=== PATIENT | female | born 1950 | race Caucasian/White ===

== ENCOUNTER → 2016-07-24 | Outpatient (CLI) | payer MEDICARE ==
[~2016-07-24] MED LIST: ACTOPLUS MET 501 TAB PO; ALEVE 220MG220 MG PO; AMBIEN 10MG10 MG PO; ARIMIDEX1 MG PO; ASPIRIN 81M81 MG/TA2 PO; BYETTA PO; BYSTOLIC10 MG PO; BYSTOLIC5 MG PO; CALCIUM 500 + D1 TAB PO; CALCIUM 600 + V1 TA1 PO; CELEXA 20MG20 MG/TAB PO; CELEXA40 MG PO; COLACE 100100 MG/CAP PO; DEXILANT60 MG PO; DIOVAN320 MG PO; FEMHRT PO; FERROUS SU325 MG/TAB PO; FISH OIL CONC1000 MG PO; FISH OIL1000 MG PO; FOLIC ACID PO; FORTAMET500 MG PO; GLUCOPHAGE500 MG/TAB PO; LIPITOR 10MG10 MG PO; LOPRESSOR 550 MG/TAB PO; MAGNESIUM250 M1 PO; MELATONIN PO; MELATONIN5 M1 PO; MICROZIDE12.5 MG PO; MULTIPLE VITAMI1 TAB PO; MVI PO; NIACIN TIME RE500 MG PO; NITROQUICK0.4 MG SL; NITROSTAT0.4 MG/TAB SL; OSCAL 500MG/VI500 MG PO; PRAVACHOL 40MG40 MG PO; PROTONIX 40MG T40 MG PO; ROXICODONE 55 MG/TAB PO; TYLENOL 325MG325 MG PO; TYLENOL PM PO; ULTRAM 50MG TAB50 MG PO; VITAMIN B COMPL1 T16 PO; VITAMIN C500 MG PO; VOLTAREN 75 DR75 MG PO; XANAX 0.5MG0.5 MG PO; ZESTRIL 10MG10 MG PO; ZOLOFT 100MG100 MG PO; ZOLOFT100 MG PO
== END ==
LOC: MC.RAD 13:59
DX: Z12.31 Encounter for screening mammogram for malignant neoplasm of breast (principal)

== ENCOUNTER → 2016-08-21 | Outpatient (CLI) | payer MEDICARE ==
[2016-08-21 17:00] LABS: CALCIUM 9.2 mg/dL (8.4-10.2); CREATININE, serum 1.18 mg/dL (0.52-1.25); POTASSIUM 4.3 mmol/L (3.4-5.0)
== END ==
LOC: COL.LAB 15:41
PROVIDERS: Internal Medicine Nephrology
DX: Z01.89 Encounter for other specified special examinations (principal)

== ENCOUNTER → 2017-02-17 | Outpatient (CLI) | payer MEDICARE ==
[2017-02-17 17:37] LABS: CALCIUM 9.1 mg/dL (8.4-10.2); CREATININE, serum 1.19 mg/dL (0.52-1.25); POTASSIUM 4.4 mmol/L (3.4-5.0)
== END ==
LOC: COL.LAB 16:42
PROVIDERS: Internal Medicine Nephrology
DX: N18.3 Chronic kidney disease, stage 3 (moderate) (principal)

== ENCOUNTER 2017-04-21 10:09 | Outpatient (CLI) | payer MEDICARE ==
[2017-04-21] VITALS (7 sets, daily range): BP systolic 79–146; BP diastolic 31–80; PULSE 51–91; TEMP 97.7
[~2017-04-21] VITALS: Ht 115.7 cm; Wt 115.9 kg
[2017-04-21] MEDS ORDERED: WELLBUTRIN SR150 M1 PO (10:51)
[2017-04-21] MEDS ORDERED: HYDRODIURIL50 MG PO (10:53)
[2017-04-21] MEDS ORDERED: VASCEPA1 GM PO (10:53)
[2017-04-21] MEDS ORDERED: COZAAR 25MG25 MG/TAB PO (10:55)
== END 2017-04-21 15:59 | disposition home or self-care (01) ==
LOC: COL.CAR 10:09
DX: M80.88XA Other osteoporosis with current pathological fracture, vertebra(e), initial encounter for fracture (principal); I25.10 Atherosclerotic heart disease of native coronary artery without angina pectoris; Z95.1 Presence of aortocoronary bypass graft; I10 Essential (primary) hypertension; E78.5 Hyperlipidemia, unspecified
CPT/HCPCS: C1713; J2250; J3010

== ENCOUNTER → 2017-08-19 | Outpatient (CLI) | payer MEDICARE ==
[~2017-08-19] MED LIST changes: +COZAAR 25MG25 MG/TAB PO; +HYDRODIURIL50 MG PO; +VASCEPA1 GM PO; +WELLBUTRIN SR150 M1 PO
[2017-08-19 16:58] LABS: CALCIUM 9.2 mg/dL (8.4-10.2); CREATININE, serum 1.19 mg/dL (0.52-1.25); POTASSIUM 4.4 mmol/L (3.4-5.0)
== END ==
LOC: COL.LAB 16:21
PROVIDERS: Internal Medicine Nephrology
DX: N18.3 Chronic kidney disease, stage 3 (moderate) (principal)

== ENCOUNTER → 2018-02-06 | Outpatient (CLI) | payer MEDICARE ==
[2018-02-06 16:28] LABS: URINE PROTEIN:CREAT RATIO 0.08 (0.00-0.14)
[2018-02-06 16:29] LABS: CALCIUM 8.4 mg/dL (8.4-10.2); CREATININE, serum 1.48 mg/dL (0.52-1.25); POTASSIUM 4.5 mmol/L (3.4-5.0)
== END ==
LOC: COL.LAB 15:32
PROVIDERS: Internal Medicine
DX: E11.22 Type 2 diabetes mellitus with diabetic chronic kidney disease (principal); I12.9 Hypertensive chronic kidney disease with stage 1 through stage 4 chronic kidney disease, or unspecified chronic kidney disease; N18.3 Chronic kidney disease, stage 3 (moderate)

== ENCOUNTER → 2018-05-29 | Outpatient (CLI) | payer MEDICARE | LOC: COL.LAB 15:02 | DX: E11.22 Type 2 diabetes mellitus with diabetic chronic kidney disease (principal); I12.9 Hypertensive chronic kidney disease with stage 1 through stage 4 chronic kidney disease, or unspecified chronic kidney disease; N18.3 Chronic kidney disease, stage 3 (moderate) ==

== ENCOUNTER → 2018-06-22 | Outpatient (CLI) | payer MEDICARE | LOC: COL.PUL 08:00 | DX: E11.22 Type 2 diabetes mellitus with diabetic chronic kidney disease (principal); N18.9 Chronic kidney disease, unspecified; I73.9 Peripheral vascular disease, unspecified; I25.10 Atherosclerotic heart disease of native coronary artery without angina pectoris; R09.89 Other specified symptoms and signs involving the circulatory and respiratory systems; R06.02 Shortness of breath; Z87.891 Personal history of nicotine dependence ==

== ENCOUNTER → 2018-10-22 | Outpatient (CLI) | payer MEDICARE ==
[2018-10-22 17:25] LABS: MEAN CELL VOLUME 91 fl (80.0-100.0); MEAN CORPUSCULAR HEMOGLOBIN 30 pg (27.0-31.0); MEAN CORPUSCULAR HGB CONC 33 g/dl (33.0-37.0); MEAN PLATELET VOLUME 9.2 fl (7.4-10.4); PLATELET COUNT 236 K/mm3 (130-400); RED BLOOD COUNT 4.03 M/mm3 (4.10-5.30); REDCELL DISTRIBUTION WIDTH-CV 14.9 % (11.5-14.5)
[2018-10-22 17:38] LABS: HEMATOCRIT 36.7 % (37.0-47.0)
[2018-10-22 17:41] LABS: CALCIUM 9.7 mg/dL (8.4-10.2); CREATININE, serum 2.05 (0.52-1.25); POTASSIUM 4.6 mmol/L (3.4-5.0)
[2018-10-26 02:22] LABS: URINE MICROALBUMIN SEE PCI FOR RESULTS
[2018-10-26 02:23] LABS: CREATININE OTHER SOURCE SEE PCI FOR RESULTS
== END ==
LOC: COL.LAB 16:46
PROVIDERS: Internal Medicine
DX: E11.22 Type 2 diabetes mellitus with diabetic chronic kidney disease (principal); N18.3 Chronic kidney disease, stage 3 (moderate); I15.8 Other secondary hypertension

== ENCOUNTER → 2018-11-27 | Outpatient (CLI) | payer MEDICARE ==
[2018-11-27 18:02] LABS: CALCIUM 9.6 mg/dL (8.4-10.2); CREATININE, serum 1.56 (0.52-1.25); POTASSIUM 4.2 mmol/L (3.4-5.0)
== END ==
LOC: COL.LAB 17:13
PROVIDERS: Internal Medicine Nephrology
DX: I15.8 Other secondary hypertension (principal); N18.3 Chronic kidney disease, stage 3 (moderate)

== ENCOUNTER → 2019-05-28 | Outpatient (CLI) | payer MEDICARE | LOC: MC.RAD 11:30 | DX: Z12.31 Encounter for screening mammogram for malignant neoplasm of breast (principal) ==

== ENCOUNTER → 2019-06-24 | Outpatient (CLI) | payer MEDICARE ==
[2019-06-24 15:45] LABS: CALCIUM 9.2 mg/dL (8.4-10.2); CREATININE, serum 1.63 (0.52-1.25); POTASSIUM 4.5 mmol/L (3.4-5.0)
== END ==
LOC: COL.LAB 14:41
PROVIDERS: Internal Medicine Nephrology
DX: I15.9 Secondary hypertension, unspecified (principal); N18.3 Chronic kidney disease, stage 3 (moderate)

== ENCOUNTER 2019-09-03 12:43 | Day surgery (SDC) | payer MEDICARE ==
[2019-09-03 13:09] LABS: HEMOGLOBIN 11.1 g/dl (12.5-16.0); MEAN CELL VOLUME 87 fl (80.0-100.0); MEAN CORPUSCULAR HEMOGLOBIN 27 pg (27.0-31.0); MEAN CORPUSCULAR HGB CONC 31 g/dl (33.0-37.0); MEAN PLATELET VOLUME 8.8 fl (7.4-10.4); PLATELET COUNT 268 K/mm3 (130-400); RED BLOOD COUNT 4.08 M/mm3 (4.10-5.30)
[2019-09-03 13:10] LABS: HEMATOCRIT 35.5 % (37.0-47.0)
[2019-09-03 13:17] LABS: CALCIUM 8.9 mg/dL (8.4-10.2); CREATININE, serum 1.69 (0.52-1.25); INR 1.2 (0.8-3.0); POTASSIUM 4.4 mmol/L (3.4-5.0); PROTHROMBIN TIME 13.7 SECONDS (9.7-12.8)
[2019-09-03 13:59] VITALS: BP 145/57; PULSE 62; TEMP 98.6
[2019-09-03 15:11] VITALS: BP 137/75; PULSE 78
--- NOTE | 2019-09-03 15:11 | NUR ---
Pt back from procedure, bs report from Valarie TEJEDA. pt is gcs 16, p,w,d with reg and unlabored resps. sinus rhythm on monitor.
[2019-09-03 15:25] VITALS: BP 142/65; PULSE 79
[2019-09-03 15:40] VITALS: BP 148/74; PULSE 78
[2019-09-03 15:55] VITALS: BP 151/77; PULSE 85
[2019-09-03] MEDS ORDERED: ELIQUIS 5MG PO (16:08)
[2019-09-03] MEDS ORDERED: MULTAQ400 MG PO (16:09)
[2019-09-03] MEDS ORDERED: FOSAMAX 70MG TA70 MG PO (16:09)
[2019-09-03 16:10] VITALS: BP 149/86; PULSE 82
--- NOTE | 2019-09-03 16:37 | NUR ---
Pt is ready for discharge at this time. I have reviewed dc/fu instructions with pt. I did not complete med reconciliation prior to procedure/dc instructions. I spoke to DR. Delacruz and reviewed with him the meds that were not on med rec and that they were to be continued. I edited the discharge meds after this conversation. Pt has been able to eat and drink with no problem, she is amb to bathroom with steady gait. IV is dc'd with cath intact, dressing applied. pt is escorted to exit via wheelchair.
[2019-09-10] MEDS ORDERED: ZOLOFT 50MG50 MG PO (01:17)
== END 2019-09-03 16:45 ==
LOC: COL.CAR 12:43
PROVIDERS: Internal Medicine Interventional Cardiology
DX: I48.3 Typical atrial flutter (principal); I48.91 Unspecified atrial fibrillation; I25.10 Atherosclerotic heart disease of native coronary artery without angina pectoris; I10 Essential (primary) hypertension; E11.9 Type 2 diabetes mellitus without complications; M79.7 Fibromyalgia; G43.909 Migraine, unspecified, not intractable, without status migrainosus; Z68.39 Body mass index [BMI] 39.0-39.9, adult; E66.9 Obesity, unspecified; Z95.0 Presence of cardiac pacemaker; Z79.899 Other long term (current) drug therapy; Z79.82 Long term (current) use of aspirin; Z79.01 Long term (current) use of anticoagulants; Z87.891 Personal history of nicotine dependence; Z88.8 Allergy status to other drugs, medicaments and biological substances
CPT/HCPCS: J2704

== ENCOUNTER → 2020-03-23 | Outpatient (CLI) | payer MEDICARE ==
[~2020-03-23] MED LIST changes: +ELIQUIS 5MG PO; +FOSAMAX 70MG TA70 MG PO; +MULTAQ400 MG PO; +ZOLOFT 50MG50 MG PO
[2020-03-23 17:21] LABS: CALCIUM 9.3 mg/dL (8.4-10.2); CREATININE, serum 2.81 (0.52-1.25); POTASSIUM 3.6 mmol/L (3.4-5.0)
== END ==
LOC: COL.LAB 16:50
PROVIDERS: Internal Medicine Nephrology
DX: I15.8 Other secondary hypertension (principal); N18.30 Chronic kidney disease, stage 3 unspecified

== ENCOUNTER 2020-04-27 18:05 | Emergency (ER) | payer MEDICARE ==
[~2020-04-27] VITALS: Ht 162.6 cm; Wt 100.0 kg
[2020-04-27 18:21] VITALS: TEMP 98
[2020-04-27] MEDS ORDERED: ROBAXIN 50500 MG/TAB PO (19:22)
[2020-04-27] MEDS ORDERED: LIDODERM 5% PATC1 EA TP (19:27)
[2020-04-27] MEDS ORDERED: MEDROL 4MG DOSPA4 MG PO (19:27)
[2020-04-27 19:30] VITALS: BP 130/81; PULSE 74
== END 2020-04-27 19:30 | disposition home or self-care (01) ==
LOC: COL.ER 18:05
DX: M62.830 Muscle spasm of back (principal); I10 Essential (primary) hypertension; E11.9 Type 2 diabetes mellitus without complications; I25.10 Atherosclerotic heart disease of native coronary artery without angina pectoris; Z95.1 Presence of aortocoronary bypass graft; Z87.891 Personal history of nicotine dependence; Z88.1 Allergy status to other antibiotic agents; Z88.8 Allergy status to other drugs, medicaments and biological substances; Z79.01 Long term (current) use of anticoagulants; Z79.82 Long term (current) use of aspirin; Z79.84 Long term (current) use of oral hypoglycemic drugs
CPT/HCPCS: J1885

== ENCOUNTER → 2020-06-28 | Outpatient (CLI) | payer MEDICARE ==
[~2020-06-28] MED LIST changes: +DUO-KAPS1 CAP PO; +LASIX 20MG TABL20 MG PO; +LIDODERM 5% PATC1 EA TP; +MEDROL 4MG DOSPA4 MG PO; +MELATONIN5 M1 SL; -NIACIN TIME RE500 MG PO; +NIASPAN 500MG500 MG PO; +ROBAXIN 50500 MG/TAB PO
[2020-06-28 18:12] LABS: CREATININE, serum 2.44 (0.52-1.25); POTASSIUM 3.9 mmol/L (3.4-5.0)
[2020-06-29 17:27] LABS: CREATININE OTHER SOURCE 52 mg/dL (()); URINE MICROALBUMIN <0.5 mg/dL (0.0-1.7)
== END ==
LOC: COL.LAB 16:57
PROVIDERS: Internal Medicine Nephrology
DX: E11.8 Type 2 diabetes mellitus with unspecified complications (principal); N17.8 Other acute kidney failure

== ENCOUNTER → 2020-07-24 | Outpatient (CLI) | payer MEDICARE | LOC: MC.RAD 13:15 | DX: Z12.31 Encounter for screening mammogram for malignant neoplasm of breast (principal) ==

== ENCOUNTER → 2020-08-24 | Outpatient (CLI) | payer MEDICARE ==
[2020-08-24 17:51] LABS: CALCIUM 9.3 mg/dL (8.4-10.2); CREATININE, serum 1.75 (0.52-1.25); POTASSIUM 4.2 mmol/L (3.4-5.0)
== END ==
LOC: COL.LAB 17:04
PROVIDERS: Internal Medicine Nephrology
DX: E11.22 Type 2 diabetes mellitus with diabetic chronic kidney disease (principal); N18.32 Chronic kidney disease, stage 3b

== ENCOUNTER 2020-11-23 12:58 | Day surgery (SDC) | payer MEDICARE ==
[2020-11-23] VITALS (12 sets, daily range): BP systolic 128–164; BP diastolic 66–82; PULSE 63–73
[~2020-11-23] VITALS: Ht 162.6 cm; Wt 105.5 kg
[~2020-11-23 12:58] MED LIST changes: -DUO-KAPS1 CAP PO; -LASIX 20MG TABL20 MG PO; -MELATONIN5 M1 SL
[2020-11-23 13:36] LABS: HEMOGLOBIN 10.2 g/dl (12.5-16.0); MEAN CELL VOLUME 82 fl (80.0-100.0); MEAN CORPUSCULAR HEMOGLOBIN 26 pg (27.0-31.0); MEAN CORPUSCULAR HGB CONC 31 g/dl (33.0-37.0); MEAN PLATELET VOLUME 8.8 fl (7.4-10.4); PLATELET COUNT 264 K/mm3 (130-400); RED BLOOD COUNT 3.97 M/mm3 (4.10-5.30); REDCELL DISTRIBUTION WIDTH-CV 15.8 % (11.5-14.5)
[2020-11-23 13:41] LABS: INR 1.3 (0.8-3.0); PROTHROMBIN TIME 14.2 SECONDS (9.7-12.8)
[2020-11-23 13:44] LABS: CALCIUM 9.2 mg/dL (8.4-10.2); CREATININE, serum 1.86 (0.52-1.25); HEMATOCRIT 32.6 % (37.0-47.0); PARTIAL THROMBOPLASTIN TIME 28.5 SECONDS (26.0-37.0); POTASSIUM 4.4 mmol/L (3.4-5.0)
[2020-11-23] MEDS ORDERED: LASIX 20MG TABL20 MG PO (14:49)
[2020-11-23] MEDS ORDERED: MELATONIN5 M1 SL (14:50)
[2020-11-23] MEDS ORDERED: DUO-KAPS1 CAP PO (14:50)
--- NOTE | 2020-11-23 15:04 | NUR ---
SEE MERGE DOCUMENTATION FOR MEDICATION ADMINISTRATION TIMES AND INTRA/POST PROCEDURE SEDATION ASSESSMENTS.
--- NOTE | 2020-11-23 18:28 | NUR ---
Discharge instructions given to pt.pt verbalizes understanding.INT remove,catheter tip intact.Pt escorted out via wheelchair by this nurse.
== END 2020-11-23 18:28 ==
LOC: COL.CAR 12:58
PROVIDERS: Internal Medicine Interventional Cardiology
DX: I25.119 Atherosclerotic heart disease of native coronary artery with unspecified angina pectoris (principal); I48.92 Unspecified atrial flutter; Z45.010 Encounter for checking and testing of cardiac pacemaker pulse generator [battery]; Z79.82 Long term (current) use of aspirin; Z79.01 Long term (current) use of anticoagulants; Z53.8 Procedure and treatment not carried out for other reasons
CPT/HCPCS: C1760; C1769; C1894; J1644; J1940; J2250; J3010; Q9967

== ENCOUNTER → 2021-01-26 | Outpatient (CLI) | payer MEDICARE ==
[~2021-01-26] MED LIST changes: +DUO-KAPS1 CAP PO; +LASIX 20MG TABL20 MG PO; +MELATONIN5 M1 SL
[2021-01-26 16:01] LABS: CALCIUM 9.6 mg/dL (8.4-10.2); CREATININE, serum 1.92 mg/dL (0.57-1.11); POTASSIUM 4.3 mmol/L (3.5-4.5)
== END ==
LOC: COL.LAB 15:22
PROVIDERS: Internal Medicine Nephrology
DX: E11.22 Type 2 diabetes mellitus with diabetic chronic kidney disease (principal); N18.32 Chronic kidney disease, stage 3b

== ENCOUNTER → 2021-02-21 | Outpatient (CLI) | payer MEDICARE ==
[2021-02-21 14:30] LABS: HEMOGLOBIN 10.5 g/dl (12.5-16.0); MEAN CELL VOLUME 83 fl (80.0-100.0); MEAN CORPUSCULAR HEMOGLOBIN 27 pg (27.0-31.0); MEAN CORPUSCULAR HGB CONC 32 g/dl (33.0-37.0); MEAN PLATELET VOLUME 9.3 fl (7.4-10.4); PLATELET COUNT 242 K/mm3 (130-400); RED BLOOD COUNT 3.93 M/mm3 (4.10-5.30)
[2021-02-21 14:31] LABS: HEMATOCRIT 32.5 % (37.0-47.0)
[2021-02-21 14:44] LABS: CALCIUM 9.3 mg/dL (8.4-10.2); CREATININE, serum 1.92 mg/dL (0.57-1.11); POTASSIUM 4.4 mmol/L (3.5-4.5)
== END ==
LOC: COL.LAB 14:04
PROVIDERS: Internal Medicine Interventional Cardiology
DX: Z01.812 Encounter for preprocedural laboratory examination (principal); R60.0 Localized edema

== ENCOUNTER → 2021-04-23 | Outpatient (CLI) | payer MEDICARE ==
[2021-04-23 16:55] LABS: CALCIUM 8.6 mg/dL (8.4-10.2); CREATININE, serum 1.81 mg/dL (0.57-1.11); POTASSIUM 4.2 mmol/L (3.5-4.5)
== END ==
LOC: COL.LAB 15:56
PROVIDERS: Nurse Practitioner
DX: R53.83 Other fatigue (principal); R06.02 Shortness of breath

== ENCOUNTER → 2021-08-23 | Outpatient (CLI) | payer MEDICARE ==
[2021-08-23 17:05] LABS: CALCIUM 8.6 mg/dL (8.4-10.2); CREATININE, serum 2.76 mg/dL (0.57-1.11); POTASSIUM 4.1 mmol/L (3.5-4.5)
== END ==
LOC: COL.LAB 16:28
PROVIDERS: Internal Medicine Nephrology
DX: E87.5 Hyperkalemia (principal); I15.8 Other secondary hypertension; N18.4 Chronic kidney disease, stage 4 (severe)

== ENCOUNTER → 2021-09-11 | Outpatient (CLI) | payer MEDICARE | LOC: MC.RAD 13:15 | DX: Z12.31 Encounter for screening mammogram for malignant neoplasm of breast (principal) ==

== ENCOUNTER → 2021-11-22 | Outpatient (CLI) | payer MEDICARE ==
[2021-11-22 15:45] LABS: CALCIUM 9.4 mg/dL (8.4-10.2); CREATININE, serum 2.62 mg/dL (0.57-1.11); POTASSIUM 4.3 mmol/L (3.5-4.5)
== END ==
LOC: COL.LAB 14:52
PROVIDERS: Internal Medicine Nephrology
DX: Z01.89 Encounter for other specified special examinations (principal)